=== PATIENT | female | born 1960 | race Caucasian/White ===

== ENCOUNTER 2017-01-16 15:34 | Emergency (ER) | payer MEDICARE ==
[2017-01-16 17:03] LABS: BASOPHILS 0.4 % (0.0-2.0); EOSINOPHILS 0.8 % (0-7); HEMATOCRIT 46.2 % (36.0-48.0); HEMOGLOBIN 15.4 g/dL (12-16); IMMATURE GRANULOCYTES 0.1 % (0-5); LYMPHOCYTES 35.7 % (15-50); MCH 32.4 pg (26.0-34.0); MCHC 33.3 g/dL (31.0-37.0); MCV 97.1 fL (80.0-100.0); MEAN PLATELET VOLUME 10.4 fL (7.4-10.4); PLATELET COUNT 193 10x3/uL (130-400); RBC 4.76 10x6/uL (4.00-5.40); RDW 13.4 % (11.5-14.5); WBC 7.4 10x3/uL (4.8-10.8)
[2017-01-16 17:28] LABS: ALBUMIN 3.6 g/dL (3.4-5.0); ALKALINE PHOSPHATASE 84 U/L (46-116); ALT (SGPT) 24 U/L (10-68); BILIRUBIN - TOTAL 0.23 mg/dL (0.2-1.3); CALC OSMOLALITY 287 mosm/kg (275-300); CALCIUM 8.7 mg/dL (8.5-10.1); CARBON DIOXIDE 32.3 mmol/L (21.0-32.0); CHLORIDE - SERUM 105 mmol/L (98-107); CREATININE - SERUM 0.8 mg/dL (0.6-1.3); GLUCOSE 136 mg/dL (74-106); POTASSIUM - SERUM 4.3 mmol/L (3.5-5.1); PROTEIN - SERUM 6.9 g/dL (6.4-8.2); SODIUM 143 mmol/L (136-145); UREA NITROGEN 14 mg/dL (7-18); eGFR NON AFRICAN AMERICAN 79 mL/min (90-120)
[2017-01-16 17:56] LABS: CKMB 2.5 U/L (0.0-3.6); CREATINE KINASE 97 UL (21-215)
[2017-01-16 17:58] LABS: TROPONIN-I < 0.017 ng/mL (0.000-0.060)
[2017-01-17] MEDS ORDERED: PHENERGAN DM SYR5 ML PO (15:16)
[2017-01-17] MEDS ORDERED: VALIUM5 MG PO (15:16)
[2017-01-18 13:43] VITALS: BMI 21.3
== END 2017-01-16 19:45 | disposition home or self-care (01) ==
LOC: D.ER 15:34
PROVIDERS: Emergency Medicine
DX: R42 Dizziness and giddiness (principal); I10 Essential (primary) hypertension; E78.00 Pure hypercholesterolemia, unspecified; F17.200 Nicotine dependence, unspecified, uncomplicated

== ENCOUNTER 2017-01-18 12:31 | Day surgery (SDC) | payer MEDICARE, MEDICAID ==
[~2017-01-18] VITALS: Ht 172.7 cm; Wt 63.5 kg
[~2017-01-18 12:31] MED LIST: PHENERGAN DM SYR5 ML PO; VALIUM5 MG PO
[2017-01-18 13:43] VITALS: BP 128/76; Ht 172.7 cm; Wt 63.5 kg
[2017-01-18 13:46] LABS: BASOPHILS 0.4 % (0.0-2.0); EOSINOPHILS 1.6 % (0-7); HEMATOCRIT 48.5 % (36.0-48.0); IMMATURE GRANULOCYTES 0.2 % (0-5); LYMPHOCYTES 37.9 % (15-50); MCH 32.4 pg (26.0-34.0); MCV 98.2 fL (80.0-100.0); MEAN PLATELET VOLUME 10.8 fL (7.4-10.4); MONOCYTES 7.8 % (2-11); NEUTROPHILS 52.1 % (40-80); PLATELET COUNT 182 10x3/uL (130-400); RBC 4.94 10x6/uL (4.00-5.40); RDW 13.3 % (11.5-14.5); WBC 8.3 10x3/uL (4.8-10.8)
[2017-01-18 14:08] LABS: CALCIUM 9.3 mg/dL (8.5-10.1); CARBON DIOXIDE 30.6 mmol/L (21.0-32.0); CREATININE - SERUM 0.9 mg/dL (0.6-1.3); POTASSIUM - SERUM 4.6 mmol/L (3.5-5.1)
--- NOTE | 2017-01-18 18:55 | NUR ---
1545--IV DC'D. MIHAI ALVAREZ 1615--DISCHARGE INSTRUCTIONS GIVEN, PT VERBALIZES UNDERSTANDING. PT OFF UNIT VIA WC. MIHAI ALVAREZ
--- NOTE | 2017-01-25 08:50 | OP ---
PATIENT NAME: GINA LEVIN MEDICAL RECORD: [id number] :64 LOCATION:D.OPS ADMISSION DATE: SURGEON: NATI WAYNE DPM DATE OF OPERATION: 01/18/2017 PREOPERATIVE DIAGNOSIS: Neuroma, left second interspace. POSTOPERATIVE DIAGNOSIS: Neuroma, left second interspace. PROCEDURE: Neurectomy, left second interspace. ANESTHESIA: Local with IV sedation. HEMOSTASIS: Left ankle tourniquet at 250 mmHg. PREOPERATIVE DETAILS: The patient was taken to the OR, placed on the OR table in supine position followed by induction of IV sedation and infiltration of local anesthetic. The left extremity was then prepped and draped in usual aseptic technique followed by elevation of extremity and inflation of the tourniquet. A 15 blade was used to create a 4-cm linear incision over dorsal aspect of the second interspace extending to the base of the second and third toe. The incision deepened down through subcutaneous tissue through the ____metatarsal ligament. The nerve was visualized in the wound. It was quite enlarged and a lot of scar tissue around it. It was freed from surrounding soft tissue structures. Proximal in the interspace as far as possible and transected and then dissected to the second and third toe and the nerve roots were also transected there. The specimen was sent to pathology for gross micro identification. At this time, the lidocaine with epinephrine was infiltrated in the wound. The tourniquet was deflated. Excellent hemostasis was noted and the wound was closed wet. The subcutaneous tissue with 4-0 Rapide and the skin was closed with 4-0 nylon in a simple interrupted technique. Adaptic, 4 x 4 and Conform were used to dress the wound followed by Cobcandace. The patient tolerated the procedure well and left the OR with vital signs stable and vascular status at preop levels. The patient was transported to recovery per anesthesia in stable condition. TRANSINT:[id number] Voice Confirmation ID: [id number] DOCUMENT ID: [id number] NATI WAYNE DPM at 0850 CC: [id number] DICTATION DATE: 01/18/17 1430 ELECTRONICS WORKER: 01/18/17 [id number] [facility] [place] 01/18/17 [facility] [address] [id number]
== END 2017-01-18 16:15 | disposition home or self-care (01) ==
LOC: D.OPS 12:31 → D.PAN 14:30 → D.OPS 15:15
PROVIDERS: Anesthesiology
DX: G57.82 Other specified mononeuropathies of left lower limb (principal)